=== PATIENT | male | born 1950 | race Caucasian/White ===

== ENCOUNTER → 2020-08-27 08:02 | Outpatient (CLI) | payer MEDICARE, SELFPAY ==
[2020-08-27 18:20] LABS: SARS-CoV-2 RNA PCR Negative
== END ==
PROVIDERS: PCP Family Medicine; Visit Provider Nurse Practitioner Family
DX: Z20.822 Contact with and (suspected) exposure to COVID-19 (principal); R05 Cough
CPT/HCPCS: C9803; U0003; U0005

== ENCOUNTER 2021-05-06 08:28 | Outpatient (CLI) | payer MEDICARE, SELFPAY ==
--- NOTE | ~2021-05-06 | CT_ITS ---
EXAMINATION: CT lung screening DATE: 05/06/2021 08:55 INDICATION: PERS HX OF NICOTINE DEPENDENCE TECHNIQUE: Computed tomography (CT) of the chest was performed without intravenous contrast. Addition al 3D reconstructions utilizing coronal maximum intensity projection (MIP) were performed. Automated exposure control and iterative reconstruction technique were employed. The dose-length product was 27 7.80 mGy-cm. COMPARISON: None FINDINGS: Moderate emphysema. Mild discoid atelectasis/scarring at the anteroinferior lingula and minimal linea r discoid atelectasis in the right lower lobe. There are few scattered <2 mm pulmonary nodules are co uple of which appear likely calcified consistent with old granulomatous disease. No large suspicious pulmonary nodules, pneumonia, pulmonary edema or pleural effusion. Heart size is normal. Atherosclero tic coronary artery calcification. No pericardial effusion. Thoracic aorta is normal in caliber with small amount of atherosclerotic calcification. 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 No pathologically enlarged thoracic lymphadenopathy. Diffuse hepatic steatosis. Mild thora cic spondylosis with bridging osteophytes at multiple levels consistent with diffuse idiopathic skele franko hyperostosis (DISH). IMPRESSION: 1. Lung-RADS category 2: Benign appearance or behavior. Continue annual screening with noncontrast lo w-dose chest CT in 12 months. 2. Moderate emphysema. 3. Diffuse hepatic steatosis. Reviewed, dictated and finalized at location A. IMPRESSION: 1. Lung-RADS category 2: Benign appearance or behavior. Continue annual screeni ng with noncontrast low-dose chest CT in 12 months. 2. Moderate emphysema. 3. Diffuse hepatic steatosis.
== END 2021-05-06 08:29 | disposition home or self-care (01) ==
LOC: ANHIMG 08:35
PROVIDERS: PCP Family Medicine; Visit Provider Nurse Practitioner Family
DX: Z12.2 Encounter for screening for malignant neoplasm of respiratory organs (principal); Z87.891 Personal history of nicotine dependence
CPT/HCPCS: 71271

== ENCOUNTER 2021-07-05 01:19 | Day surgery (SDC) | payer MEDICARE, SELFPAY ==
[2021-06-23 14:01] VITALS: BMI 36.0
[2021-07-05 07:03] VITALS: BP 148/81; PULSE 87; RESP 20; TEMP 36.4; O2SAT 94
--- NOTE | 2021-07-05 07:11 | P.PNAN_ITS ---
Anes - Initial Pre Proc Eval Procedure: Operation Date: 07/05/21 08:00 Proposed Procedures p Screening Colonoscopy - Gerald Harrison MD Date/Time: 07/05/21 07:11 Surgeon: Gerald Harrison MD Pre Op Diagnosis: family hx of colon polyps Patient Data Age: 70 Gender: M Height: 1.78 m Weight: 115.5 kg Last Vital Signs Temp 36.4 C L 07/05/21 07:03 Pulse 87 07/05/21 07:03 Resp 20 07/05/21 07:03 BP 148/81 H 07/05/21 07:03 Pulse Ox 94 07/05/21 07:03 Allergies Allergy/AdvReac Type Severity Reaction Status Date / Time sulfamethoxazole Allergy Severe RASH Verified 07/05/21 07:02 trimethoprim Allergy Severe RASH Verified 07/05/21 07:02 Home Medications Medication Instructions Recorded Confirmed Type albuterol sulfate 2 puff INHALATION Q4-5H PRN 06/23/21 06/23/21 History aspirin [Baby Aspirin] 81 mg PO DAILY 06/23/21 06/23/21 History dapagliflozin-metformin [Xigduo XR] 1 tablet PO DAILY 06/23/21 06/23/21 History diclofenac sodium 50 mg PO BID 06/23/21 06/23/21 History fenofibrate 160 mg PO DAILY 06/23/21 06/23/21 History fluticasone propionate 1 spray INTRANASAL DAILY PRN 06/23/21 06/23/21 History indapamide 2.5 mg PO DAILY 06/23/21 06/23/21 History omega-3 fatty acids [Fish Oil] 1,000 mg PO DAILY 06/23/21 06/23/21 History pantoprazole 40 mg PO DAILY 06/23/21 06/23/21 History pravastatin 20 mg PO DAILY 06/23/21 06/23/21 History tiotropium bromide [Spiriva 2 puff INHALATION DAILY 06/23/21 06/23/21 History Respimat] trazodone 50 mg PO HS 06/23/21 06/23/21 History Patient hx anesthesia problems: none Family hx anesthesia problems: none Results Review: All pre-operative results and documents have been reviewed as part of the pre-operative evaluation. [facility] Past Medical History Medical History (Updated 07/05/21 @ 07:13 by Boris Flores MD) COPD (chronic obstructive pulmonary disease) Diabetes GERD (gastroesophageal reflux disease) HTN (hypertension) Hyperlipidemia Obesity Prostate CA Surgical History Surgical History (Updated 07/05/21 @ 07:16 by Boris Flores MD) H/O prostatectomy H/O umbilical hernia repair Social History Social History Smoking status: Former smoker Tobacco type: smokeless tobacco Alcohol intake: current Drinks per week: 70 Living arrangements: alone Anes - Eval Final PreProcedure Day of Procedure 07/05/21 07:11 Patient weight: obese Heart: regular rate and rhythm Lungs: clear to auscultation Airway: Mallampati scale class III Neurological: alert and oriented Last oral intake: >/= 8 hours ASA classification: III Emergent: no Anesthetic plan: proceed Anesthesia type and monitoring: general GIVS and standard monitoring Results Review: All pre-operative results and documents have been reviewed as part of the pre-operative evaluation. Informed Consent: The patient's anesthetic plan and its attendant risks and benefits were discussed with the patient/family/POA. Questions were solicited and answers provided to the satisfaction of the patient/family/POA.
[2021-07-05 07:18] LABS: Glucose Point of Care 150 mg/dl (65-105)
[2021-07-05] MEDS: LACTATED RINGERS 1,000 ML 30 ML IV CONT (07:26)
--- NOTE | 2021-07-05 07:28 | WPDGICN ---
Assessment and Plan Assessment and plan (1) Family history of colonic polyps: Code(s): Z83.71 - Family history of colonic polyps Status: Acute Assessment and Plan: Patient's mother has had colon polyps. For this reason patient presents today for screening colonoscopy. Further recommendations will be given after endoscopy. GI Consult Note Consult date/time: 07/05/21 07:28 HPI: Thor Dumont is a 70 year old male Presents for screening colonoscopy. Patient's current weight appetite bowel movements are normal. Patient denies abdominal pain. He has had no bleeding. Family history is significant that his mother had colon polyps. He presents today for neoplasia screening. Review of Systems Review of Systems: All systems reviewed & are unremarkable except as noted in HPI and below PMFSH Past Medical History Medical History (Updated 07/05/21 @ 07:30 by Gerald Harrison MD) COPD (chronic obstructive pulmonary disease) Diabetes GERD (gastroesophageal reflux disease) HTN (hypertension) Hyperlipidemia Obesity Prostate CA Surgical History Surgical History (Updated 07/05/21 @ 07:16 by Boris Flores MD) H/O prostatectomy H/O umbilical hernia repair Social History Social History Smoking status: Former smoker Tobacco type: smokeless tobacco Alcohol intake: current Drinks per week: 70 Living arrangements: alone Meds Home Medications and Allergies Home Medications Medication Instructions Recorded Confirmed Type albuterol sulfate 2 puff INHALATION Q4-5H PRN 06/23/21 06/23/21 History aspirin [Baby Aspirin] 81 mg PO DAILY 06/23/21 06/23/21 History dapagliflozin-metformin [Xigduo XR] 1 tablet PO DAILY 06/23/21 06/23/21 History diclofenac sodium 50 mg PO BID 06/23/21 06/23/21 History fenofibrate 160 mg PO DAILY 06/23/21 06/23/21 History fluticasone propionate 1 spray INTRANASAL DAILY PRN 06/23/21 06/23/21 History indapamide 2.5 mg PO DAILY 06/23/21 06/23/21 History omega-3 fatty acids [Fish Oil] 1,000 mg PO DAILY 06/23/21 06/23/21 History pantoprazole 40 mg PO DAILY 06/23/21 06/23/21 History pravastatin 20 mg PO DAILY 06/23/21 06/23/21 History tiotropium bromide [Spiriva 2 puff INHALATION DAILY 06/23/21 06/23/21 History Respimat] trazodone 50 mg PO HS 06/23/21 06/23/21 History Allergies Allergy/AdvReac Type Severity Reaction Status Date / Time sulfamethoxazole Allergy Severe RASH Verified 07/05/21 07:02 trimethoprim Allergy Severe RASH Verified 07/05/21 07:02 Vital Signs Vital Signs - 24 hr 07/05/21 07:03 Temperature 97.5 F L Pulse Rate 87 Respiratory Rate 20 Blood Pressure 148/81 H Pulse Oximetry 94 Exam Narrative: Physical exam reveals patient to be alert. Vital signs stable. HEENT exam is unremarkable. Patient is anicteric. Lungs are clear to auscultation and percussion. Heart is without murmur or extra sounds. Abdomen is obese. Bowel sounds are present soft nontender with no hepatosplenomegaly. Digital external rectal exam is normal.
[2021-07-05 08:16] VITALS: BP 133/86; PULSE 78; RESP 23; O2SAT 98
[2021-07-05 08:26] VITALS: BP 141/95; PULSE 77; RESP 27; O2SAT 100
[2021-07-05 08:36] VITALS: BP 152/94; PULSE 77; RESP 30; O2SAT 95
== END 2021-07-05 08:50 | disposition home or self-care (01) ==
PROVIDERS: PCP Family Medicine; Visit Provider Internal Medicine Gastroenterology
PROC: 0DJD8ZZ Inspection of Lower Intestinal Tract, Via Natural or Artificial Opening Endoscopic (ICD-10-PCS; CPT 45378; principal; 2021-07-05 08:00)
DX: Z12.11 Encounter for screening for malignant neoplasm of colon (principal); D12.4 Benign neoplasm of descending colon; K63.5 Polyp of colon; Z83.71 Family history of colonic polyps; I10 Essential (primary) hypertension; E78.5 Hyperlipidemia, unspecified; E11.9 Type 2 diabetes mellitus without complications; J44.9 Chronic obstructive pulmonary disease, unspecified; Z85.46 Personal history of malignant neoplasm of prostate; E66.9 Obesity, unspecified; Z68.36 Body mass index [BMI] 36.0-36.9, adult; Z87.891 Personal history of nicotine dependence; Z79.51 Long term (current) use of inhaled steroids; Z79.84 Long term (current) use of oral hypoglycemic drugs
CPT/HCPCS: 45385; 82948; 88305; J2704; J7120

== ENCOUNTER 2022-06-14 10:24 | Outpatient (CLI) | payer MEDICARE, SELFPAY ==
--- NOTE | ~2022-06-14 | XR_ITS ---
EXAM: XR lumbar spine 2-3V DATE: 06/14/2022 10:54 HISTORY: LUMBAGO W SCIATICA BILATERAL . COMPARISON: CT abdomen pelvis 10/06/2015. FINDINGS: Soft tissue anchors from prior hernia repair over the lower abdomen. 5 nonrib-bearing lumba r-type vertebral bodies. Pedicles intact. Normal vertebral body alignment. Vertebral body heights pre served. Multilevel mild disc space narrowing with marginal osteophytosis, including a bridging osteop hyte laterally between L2 and L3. Multilevel facet sclerosis and hypertrophy. No fracture or dislocat ion. Calcified, infrarenal abdominal aortic aneurysm measuring up to 4.6 cm. IMPRESSION: 4.6 cm infrarenal abdominal aortic aneurysm, recommend follow-up aortic ultrasound in 6 m [facility]. Multilevel degenerative disc disease and facet arthropathy. Reviewed, dictated and finalized at location [facility]. TRIMMER IMPRESSION: 4.6 cm infrarenal abdominal aortic aneurysm, recommend follow-up ao rtic ultrasound in 6 months. Multilevel degenerative disc disease and facet art hropathy.
== END 2022-06-14 10:25 | disposition home or self-care (01) ==
PROVIDERS: PCP Family Medicine; Visit Provider Physician Assistant
DX: M54.41 Lumbago with sciatica, right side (principal); I71.40 Abdominal aortic aneurysm, without rupture, unspecified
CPT/HCPCS: 72100

== ENCOUNTER 2022-07-20 09:31 | Outpatient (CLI) | payer MEDICARE, SELFPAY ==
--- NOTE | ~2022-07-20 | MR_ITS ---
MRI of the lumbar spine Clinical History: Back pain, sciatica Technique: Axial T2-weighted images, and sagittal T1-weighted, T2-weighted, and T2 fat-sat images wer e acquired. Findings: There is no fracture or subluxation of the lumbar spine. Vertebral bodies maintain normal h eight and alignment. No significant bone marrow signal abnormality identified. At L1-L2, there is no disc bulge or herniation. No spinal canal stenosis or neural foraminal narrowin g. At L2-L3, there is no significant disc bulge or herniation. There is mild facet arthropathy. No spina l canal stenosis or neural foraminal narrowing. At L3-L4, there is mild disc bulge and mild facet arthropathy. No david spinal canal stenosis. There is minimal left neural foraminal narrowing. Right neural foramen preserved. At L4-L5, diffuse disc bulge and facet arthropathy contribute to severe thecal sac compression/spinal canal stenosis. There is mild to moderate bilateral neural foraminal narrowing. At L5-S1, there is minimal disc bulge. There is mild facet arthropathy. No spinal canal stenosis or d efinite neural foraminal narrowing. Paravertebral soft tissues are unremarkable. Impression: Multifactorial severe thecal sac compression/spinal canal stenosis at L4-L5, with bilateral neural fo raminal narrowing. Minimal left neural foraminal narrowing at L3-L4. Reviewed, dictated and finalized at [facility]. ER MEAT Impression: Multifactorial severe thecal sac compression/spinal canal stenosis at L4-L5, wi th bilateral neural foraminal narrowing. Minimal left neural foraminal narrowing at L3-L4.
== END 2022-07-20 09:32 | disposition home or self-care (01) ==
PROVIDERS: PCP Family Medicine; Visit Provider Physician Assistant
DX: M54.42 Lumbago with sciatica, left side (principal); M54.41 Lumbago with sciatica, right side; M48.061 Spinal stenosis, lumbar region without neurogenic claudication
CPT/HCPCS: 72148

== ENCOUNTER 2022-10-06 19:21 | Emergency (ER) | payer MEDICARE, SELFPAY ==
[2022-10-06] VITALS (16 sets, daily range): BP systolic 128–150; BP diastolic 70–90; PULSE 78–116; RESP 13–22; TEMP 36.8; O2SAT 80–100
--- NOTE | ~2022-10-06 | CT_ITS ---
EXAMINATION: CT brain wo con DATE: 10/06/2022 19:28 INDICATION: Altered mental status. Slurred speech. TECHNIQUE: Computed tomography (CT) of the head was performed without intravenous contrast. The mA wa s adjusted according to patient size. Iterative reconstruction technique was employed. Exam dose: 90 8.00 mGy-cm total exam DLP. COMPARISON: None FINDINGS: Prominent bilateral carotid siphon and supraclinoid internal carotid artery calcification. There is nonspecific diminished attenuation cerebral white matter, likely due to chronic small vessel ischemic changes. There is low-attenuation in the posterior right occipital parietal area consistent with subacute infa rct. No intracranial hemorrhage. No midline shift or mass effect. No subdural or epidural hematoma. No fracture or bone destruction of the cranial vault. IMPRESSION: Subacute ischemic infarct, posterior right parietal occipital area No intracranial hemorrhage Cerebral atherosclerosis and chronic small vessel ischemic changes of the cerebral white matter Dr. May telephoned the report on 10/02/2022 at 1936 hours to emergency room physician Dr. Harmon. Reviewed, dictated and finalized at [facility]. Reviewed, dictated and finalized at location [facility]. IMPRESSION: Subacute ischemic infarct, posterior right parietal occipital area No intracranial hemorrhage Cerebral atherosclerosis and chronic small vessel ischemic changes of the cereb ral white matter Dr. May telephoned the report on 10/02/2022 at 1936 hours to emergency room glenroy Harmon.
--- NOTE | ~2022-10-06 | CT_ITS ---
EXAMINATION: CTA brain carotid DATE: 10/06/2022 20:19 INDICATION: Change in mental status. TECHNIQUE: Computed tomographic angiography (CTA) of the head was performed with 100 mL Omnipaque-350 intravenous contrast. CTA of the neck was performed with intravenous contrast. Automated exposure co ntrol and iterative reconstruction technique were employed. The dose-length product was 1287.70 mGy-c m. Maximum intensity projection and volume rendered 3D-reconstructions were created by the technlobo beckman on a separate workstation. COMPARISON: Head CT 10/06/2022 FINDINGS: HEAD CTA: In the right parietal-occipital region, there is a 3.8 x 1.7 x 1.4 cm rim-enhancing mass. T here is no intracranial hemorrhage or acute ischemic infarct. The ventricles are normal in size. Ther e are likely changes of right ocular lens replacement surgery. There is anteroposterior elongation of right ocular globe. There is mucosal thickening in the paranasal sinuses. The mastoid air cells are normal. Left vertebral artery is dominant. There is no significant stenosis of basilar artery or the posterior cerebral arteries. The posterior communicating arteries are normal. There is no significant stenosis of the intracranial internal carotid arteries or anterior or middle cerebral arteries. Ante rior communicating artery is normal. There is no aneurysm. NECK CTA: There is moderate emphysema. There is an aberrant right subclavian artery. There are no pat hologically enlarged lymph nodes. There is no significant stenosis of the vertebral arteries. There i s plaque in the proximal internal carotid arteries. There is 0% stenosis of the proximal right event marketing intern al carotid artery relative to normal distal artery lumen diameter (NASCET criteria). There is 26% reymundo nosis of the proximal left internal carotid artery relative to normal distal artery lumen diameter. T here is severe cervical spondylosis. IMPRESSION: 1. 3.8 cm rim-enhancing mass in right parietal occipital region suspicious for glioblastoma or metast atic disease. Brain MRI without and with contrast is recommended. 2. No aneurysm or significant intracranial arterial stenosis. 3. 0% stenosis of the proximal right internal carotid artery relative to normal distal artery lumen d iameter (NASCET criteria). 4. 26% stenosis of the proximal left internal carotid artery relative to normal distal artery lumen d iameter. Reviewed, dictated and finalized at location E. IMPRESSION: 1. 3.8 cm rim-enhancing mass in right parietal occipital region suspicious for glioblastoma or metastatic disease. Brain MRI without and with contrast is benjamin mmended. 2. No aneurysm or significant intracranial arterial stenosis. 3. 0% stenosis of the proximal right internal carotid artery relative to normal distal artery lumen diameter (NASCET criteria). 4. 26% stenosis of the proximal left internal carotid artery relative to normal distal artery lumen diameter.
--- NOTE | ~2022-10-06 | XR_ITS ---
XR chest 1V portable DATE: 10/06/2022 19:52 INDICATION: Weakness TECHNIQUE: Portable upright AP chest on 10/02/2022 at 1949 hours COMPARISON: 05/06/2021 CT lung screening 05/17/2016 2 view chest FINDINGS: Mild infiltrate or atelectasis is suggested at the lung bases. The lungs otherwise appear c lear. No pleural effusion or pulmonary vascular congestion or pneumothorax is evident. Heart size is likely within normal limits considering magnification associated with AP projection. IMPRESSION: Limited portable single AP view suggesting mild infiltrate or atelectasis at the lung bas es Reviewed, dictated and finalized at location A. IMPRESSION: Limited portable single AP view suggesting mild infiltrate or atele ctasis at the lung bases
--- NOTE | 2022-10-06 19:27 | ECG_ITS ---
Measurements Intervals [place] Rate: 79 P: 36 AK: 160 QRS: -5 QRSD: 104 T: 54 QT: 368 QTc: 423 Interpretive Statements SINUS RHYTHM DELAYED PRECORDIAL R/S TRANSITION BORDERLINE T WAVE ABNORMALITY- ANT/HIGH LAT LEADS BASELINE ARTIFACT- I, II, AVR BORDERLINE ECG NO PREVIOUS ECG AVAILABLE FOR COMPARISON Electronically Signed On 10-06-2022 20:42:49 CDT by Marbin Merchant D.O.
[2022-10-06] MEDS: ONDANSETRON INJ 4 MG/2 ML VIAL IV PUSH ×2 (19:43→20:26)
[2022-10-06 19:47] LABS: Basophils Percent Auto 0.4 % (0.2-1.2); Eosinophils Absolute Auto 0.2 K/mm3 (0-0.3); Hematocrit 46.2 % (42.0-52.0); Hemoglobin 15.5 g/dL (14.0-18.0); Immature Granulocyte Absolute 0.02 K/mm3 (0.00-0.031); Immature Granulocyte Percent A 0.4 % (0-0.5); Lymphocytes Absolute Auto 1.24 K/mm3 (0.9-3.2); Lymphocytes Percent Auto 21.9 % (18.3-44.2); Mean Corpuscular HGB Conc 33.5 g/dl (32-36); Mean Corpuscular Hemoglobin 29.5 pg (26-34); Monocytes Absolute Auto 0.4 K/mm3 (0.1-0.6); Monocytes Percent Auto 6.7 % (2.6-8.5); Neutrophils Absolute Auto 3.8 K/mm3 (1.3-6.7); Neutrophils Percent Auto 67.6 % (45.5-73.1); Platelet Count Result 209 k/mm3 (150-375); Red Blood Count 5.25 M/mm3 (4.6-6.20); White Blood Count 5.7 K/mm3 (4.5-10.0)
[2022-10-06 19:49] LABS: Glucose Point of Care 110 mg/dl (65-105)
--- NOTE | 2022-10-06 19:52 | ED.GENADULT ---
HPI - General Adult General Chief complaint: Altered Mental Status Stated complaint: AMS Time Seen by Provider: 10/06/22 19:27 History of Present Illness HPI narrative: Patient 71-year-old gentleman who presents the emergency department with chief complaint of altered mental status. 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 When EMS initially arrived the patient was not able to answer much as far as questions but then was able to answer appropriate questions the patient was complaining of nausea during the episodes as well the patient reports that he is prediabetic and his blood sugar was in the 80s earlier this evening EMS reported that his blood sugar was 100 the patient is not on any blood thinners does report that he takes a daily aspirin reports no prior history of stroke or TX Related Data Home Medications Medication Instructions Recorded Confirmed albuterol sulfate 90 mcg/actuation 2 puff inhalation Q4-5H PRN 06/23/21 06/23/21 aerosol inhaler Shortness Of Breath aspirin 81 mg chewable tablet 81 mg PO DAILY 06/23/21 06/23/21 dapagliflozin 10 mg-metformin ER 1 tablet PO DAILY 06/23/21 06/23/21 1,000 mg tablet,extended release 24hr (Xigduo XR) diclofenac sodium 50 mg 50 mg PO BID 06/23/21 06/23/21 tablet,delayed release fenofibrate 160 mg tablet 160 mg PO DAILY 06/23/21 06/23/21 fluticasone propionate 50 1 spray intranasal DAILY PRN 06/23/21 06/23/21 mcg/actuation nasal Congestion spray,suspension indapamide 2.5 mg tablet 2.5 mg PO DAILY 06/23/21 06/23/21 omega-3 fatty acids 1,000 mg PO DAILY 06/23/21 06/23/21 pantoprazole 40 mg tablet,delayed 40 mg PO DAILY 06/23/21 06/23/21 release pravastatin 20 mg tablet 20 mg PO DAILY 06/23/21 06/23/21 tiotropium bromide 2.5 2 puff inhalation DAILY 06/23/21 06/23/21 mcg/actuation mist for inhalation (Spiriva Respimat) trazodone 50 mg tablet 50 mg PO HS 06/23/21 06/23/21 Allergies Allergy/AdvReac Type Severity Reaction Status Date / Time sulfamethoxazole Allergy Severe RASH Verified 10/06/22 19:46 trimethoprim Allergy Severe RASH Verified 10/06/22 19:46 Review of Systems Review of Systems: A 10 system review of systems was completed on the patient and is negative except for what is stated in the HPI. Nursing and ancillary documentation was reviewed. [facility] Past Medical History Medical History COPD (chronic obstructive pulmonary disease) Diabetes GERD (gastroesophageal reflux disease) HTN (hypertension) Hyperlipidemia Obesity Prostate CA Surgical History Surgical History H/O prostatectomy H/O umbilical hernia repair Social History Social History Smoking status: Former smoker Tobacco type: smokeless tobacco Alcohol intake: current Drinks per week: 70 Living arrangements: alone Exam Narrative: GENERAL: Ill -appearing, well-nourished, and in no acute distress. HEAD: Normocephalic, atraumatic. EYES: PERRLA and EOMI. ENT: Nares clear, no rhinorrhea or epistaxis. Mucous membranes moist. NECK: Supple. CHEST: Clear to auscultation. No respiratory distress. HEART: Regular rate and rhythm. No murmur heard. Normal peripheral pulses. ABDOMEN: Soft, nontender, nondistended, normal active bowel sounds. EXTREMITIES: Normal range of motion. No edema. SKIN: Warm, dry, no rash. NEURO: Alert and oriented x3. Drift of the left upper extremity but does not touch the stretcher. Difficulty at time following instructions slight slurred speech and sometimes difficulty getting words out PSYCH: Normal mood and affect. Course Course Emergency Course: Differential diagnosis includes CVA, h
[2022-10-06 19:57] LABS: INR 1.1; Prothrombin Time 13.7 Seconds (11.1-14.7)
[2022-10-06 19:58] LABS: Alanine Aminotransferase 29 U/L (6-50); Albumin Level 4.7 g/dL (3.5-5.1); Alkaline Phosphatase 31 U/L (38-126); Anion Gap 8 mmol/L (8-16); Aspartate Amino Transferase 35 U/L (17-59); Bilirubin,Total 0.6 mg/dL (0.2-1.3); Blood Urea Nitrogen 15 mg/dL (9-20); Carbon Dioxide 28 mmol/L (22-30); Chloride 102 mmol/L (98-107); Estimated Glomerular Filt Rate > 60; Glucose 102 mg/dL (65-110); Lactic Acid Reflex 1.3 mmol/L (0.7-2.0); Magnesium 2.1 mg/dL (1.6-2.3); Partial Thromboplastin Time 26.1 SECONDS (22.3-36.8); Potassium 3.5 mmol/L (3.4-5.0); Sodium 138 mmol/L (137-145)
[2022-10-06 20:02] LABS: Ethanol < 10 mg/dL (<10)
[2022-10-06 20:09] LABS: Troponin I < 0.012 ng/mL (0.000-0.034)
[2022-10-06] MEDS: SODIUM CHLORIDE 0.9% IV 1,000 ML 999 ML IV CONT (20:13)
--- NOTE | 2022-10-06 20:33 | PC.NURSE ---
attempted to obtain UA on pt. unsuccessful.
[2022-10-06 21:12] LABS: Appearance Urine Clear (Clear); Bilirubin Urine Negative (Negative); Blood Urine Negative (Negative); Color Urine Yellow (Yellow); Glucose Urine UA 3+ mg/dL (Negative); Ketones Urine Negative (Negative); Leukocyte Esterase Ur Negative LEU/UL (Negative); Nitrate Urine Negative (Negative); Protein Urine Negative (Negative); Specific Grav Ur 1.019 (1.001-1.035); Urobilinogen Urine 0.2 mg/dL (<2.0); pH Urine 6.5 (5.0-9.0)
[2022-10-06 21:20] LABS: Add Urine Microscopic? NO
[2022-10-06 21:29] LABS: Amphetamine Screen Urine Negative (Negative); Barbiturate Screen Urine Negative (Negative); Benzodiazepines Screen Urine Negative (Negative); Cannabinoid Screen Urine Negative (Negative); Cocaine Screen Urine Negative (Negative); Methadone Screen Urine Negative (Negative); Opiate Screen Urine Negative (Negative); Phencyclidine Screen Urine Negative (Negative)
== END 2022-10-06 21:15 | disposition short-term general hospital (02) ==
PROVIDERS: Emergency Provider Emergency Medicine; PCP Family Medicine
DX: I63.9 Cerebral infarction, unspecified (principal); R41.82 Altered mental status, unspecified; J44.9 Chronic obstructive pulmonary disease, unspecified; E11.9 Type 2 diabetes mellitus without complications; I10 Essential (primary) hypertension; E78.5 Hyperlipidemia, unspecified; K21.9 Gastro-esophageal reflux disease without esophagitis; Z85.46 Personal history of malignant neoplasm of prostate; Z87.891 Personal history of nicotine dependence; Z79.51 Long term (current) use of inhaled steroids; Z79.84 Long term (current) use of oral hypoglycemic drugs; Z79.82 Long term (current) use of aspirin; Z79.899 Other long term (current) drug therapy
CPT/HCPCS: 36415; 70450; 70496; 70498; 71045; 80053; 80307; 81003; 82948; 83605; 83735; 84484; 85025; 85610; 85730; 93005; 96361; 96374; 96376; 99285; J2405; J7030; Q9967

== ENCOUNTER 2022-10-25 08:14 | Outpatient (CLI) | payer MEDICARE, SELFPAY ==
--- NOTE | ~2022-10-25 | US_ITS ---
US arterial ankle brachial ind INDICATION: Lower extremity swelling TECHNIQUE: Segmental pressures and plethysmographic and Doppler waveforms of the brachial and lower e xtremity arteries were obtained. COMPARISON: None. FINDINGS: Right and left brachial artery pressures of 120 mm Hg and 127 mm Hg, respectively, are concordant (no rmal difference <= 30 mmHg). The right ankle-brachial index (JOSE) is 0.82 (normal >= 0.9-1.0). The right great toe-brachial index (TBI) is 0.45 (normal >= 0.60). The left JOSE is 0.7. The left TBI is 0.36. IMPRESSION: 1. Diminished bilateral ankle and toe brachial indices consistent with mild-moderate peripheral arter ial disease. Reviewed, dictated and finalized at location B. IMPRESSION: 1. Diminished bilateral ankle and toe brachial indices consistent with mild-mod erate peripheral arterial disease.
== END 2022-10-25 08:15 | disposition home or self-care (01) ==
PROVIDERS: PCP Family Medicine; Visit Provider Family Medicine
DX: M79.89 Other specified soft tissue disorders (principal)
CPT/HCPCS: 93922